=== PATIENT | male | born 2000 | race Hispanic/Latino ===

== ENCOUNTER 2023-12-26 21:35 | Emergency (ER) | payer SELFPAY | END 2023-12-26 22:45 | disposition home or self-care (01) | LOC: CSHERS 21:35 | DX: J11.1 Influenza due to unidentified influenza virus with other respiratory manifestations (principal) | CPT/HCPCS: 87428; 99283 ==

== ENCOUNTER 2024-03-24 18:15 | Emergency (ER) | payer SELFPAY | END 2024-03-24 19:45 | disposition home or self-care (01) | LOC: CSHERS 18:15 | DX: S66.911A Strain of unspecified muscle, fascia and tendon at wrist and hand level, right hand, initial encounter (principal); X58.XXXA Exposure to other specified factors, initial encounter | CPT/HCPCS: 99283 ==